=== PATIENT | female | born 1965 | race Caucasian/White ===

== ENCOUNTER → 2018-04-04 15:44 | Outpatient (CLI) | payer OTHER, SELFPAY ==
--- NOTE | 2018-04-04 15:47 | DI.MG.S_ITS ---
BILATERAL DIGITAL SCREENING MAMMOGRAM 3D/2D WITH CAD: 04/04/2018 CLINICAL: Routine screening. Comparison is made to exams dated: 01/21/2016 mammogram, 02/13/2017 mammogram, and 01/16/2015 mammogram - [facility]. The tissue of both breasts is extremely dense, which lowers the sensitivity of mammography. Current study was also evaluated with a Computer Aided Detection (CAD) system. No significant masses, calcifications, or other findings are seen in either breast. There has been no significant interval change. IMPRESSION: NEGATIVE There is no mammographic evidence of malignancy. A 1 year screening mammogram is recommended. This exam was interpreted at Station ID: [id number]. NOTE: For mammograms, a report in lay terms will be sent to the patient. Approximately 15% of breast malignancies will not be visualized mammographically. In the management of a palpable breast mass, a negative mammogram must not discourage biopsy of a clinically suspicious lesion. Electronically Signed By: Prabhjot cole/matilde:04/04/2018 16:20:41 letter sent: Normal Exam ACR BI-RADS Category 1: Negative 3341F
== END ==
PROVIDERS: PCP Family Medicine; Visit Provider Family Medicine
DX: Z12.31 Encounter for screening mammogram for malignant neoplasm of breast (principal)
CPT/HCPCS: 77066; G0279

== ENCOUNTER → 2018-08-15 15:40 | Outpatient (CLI) | payer OTHER, SELFPAY | PROVIDERS: PCP Family Medicine | DX: Z23 Encounter for immunization (principal) | CPT/HCPCS: 90471; 90686 ==

== ENCOUNTER → 2019-08-07 16:11 | Outpatient (CLI) | payer OTHER, SELFPAY ==
--- NOTE | 2019-08-07 | DI.MG.S_ITS ---
BILATERAL DIGITAL SCREENING MAMMOGRAM 3D/2D WITH CAD: 08/07/2019 CLINICAL: Routine screening. Comparison is made to exams dated: 04/04/2018 mammogram, 02/13/2017 mammogram, and 01/21/2016 mammogram - [facility]. The tissue of both breasts is heterogeneously dense. This may lower the sensitivity of mammography. Current study was also evaluated with a Computer Aided Detection (CAD) system. There is a round asymmetry in the right breast posterior depth lateral region seen on the craniocaudal view only. No other significant masses, calcifications, or other findings are seen in either breast. IMPRESSION: INCOMPLETE: NEEDS ADDITIONAL IMAGING EVALUATION The round asymmetry in the right breast is indeterminate. Additional views with possible ultrasound are recommended. This exam was interpreted at Station ID: [id number]. NOTE: For mammograms, a report in lay terms will be sent to the patient. Approximately 15% of breast malignancies will not be visualized mammographically. In the management of a palpable breast mass, a negative mammogram must not discourage biopsy of a clinically suspicious lesion. Electronically Signed By: Cesia del angel/matilde:08/07/2019 16:40:38 letter sent: Additional Imaging Needed ACR BI-RADS Category 0: Incomplete 3340F
== END ==
PROVIDERS: Visit Provider Family Medicine
DX: Z12.31 Encounter for screening mammogram for malignant neoplasm of breast (principal)
CPT/HCPCS: 77063; 77067

== ENCOUNTER → 2019-09-04 13:00 | Outpatient (CLI) | payer OTHER, SELFPAY | DX: Z23 Encounter for immunization (principal) | CPT/HCPCS: 90471; 90686 ==

== ENCOUNTER → 2019-09-18 13:11 | Outpatient (CLI) | payer OTHER, SELFPAY ==
--- NOTE | 2019-09-18 13:13 | DI.MG.S_ITS ---
UNILATERAL RIGHT DIGITAL DIAGNOSTIC MAMMOGRAM 3D/2D WITH ADDITIONAL VIEWS: 09/18/2019 CLINICAL: Additional evaluation requested from prior study. Comparison is made to exams dated: 08/07/2019 mammogram, 04/04/2018 mammogram, and 02/13/2017 mammogram - [facility]. The tissue of right breast is heterogeneously dense. This may lower the sensitivity of mammography. The previously described round asymmetry in the right breast posterior depth lateral region seen on the craniocaudal view only is no longer seen. This is consistent with summation artifact. No other significant masses or calcifications are seen in the breast. IMPRESSION: The previously described asymmetry disperses with additional views and is consistent with summation artifact. There is no mammographic evidence of malignancy. A 1 year screening mammogram is recommended. This exam was interpreted at Station ID: [id number]. NOTE: For mammograms, a report in lay terms will be sent to the patient. Approximately 15% of breast malignancies will not be visualized mammographically. In the management of a palpable breast mass, a negative mammogram must not discourage biopsy of a clinically suspicious lesion. Electronically Signed By: Ronnell Loco M.D. at/:09/18/2019 13:40:38 letter sent: Normal Exam ACR BI-RADS Category 2: Benign Finding(s) 3342F
== END ==
PROVIDERS: Visit Provider Family Medicine
DX: R92.8 Other abnormal and inconclusive findings on diagnostic imaging of breast (principal)
CPT/HCPCS: 77065; G0279

== ENCOUNTER → 2020-08-12 14:09 | Outpatient (CLI) | payer OTHER, SELFPAY ==
--- NOTE | 2020-08-12 14:11 | DI.MRI.S_ITS ---
PROCEDURE: MR HEAD/BRAIN WO CON INDICATIONS: Paresthesias TECHNIQUE: Non-contrast axial T1 spin echo, axial T2 fast spin echo, sagittal and axial FLAIR, coronal T2 fast spin echo, axial gradient echo, axial diffusion and ADC through the brain. COMPARISON: None. FINDINGS: Image quality: Excellent. CSF spaces: Ventricles appear symmetric in size and shape. Basal cisterns are patent. No extra-axial fluid collections. Brain: There are a few small non-specific foci of increased FLAIR/T2 hyperintensity in the subcortical white matter of the frontal lobes (both seen on series 7, image 20, 1 in the left superior frontal gyrus in the other in the right superior frontal gyrus). Otherwise normal brain parenchymal signal intensity. No restricted diffusion to indicate recent ischemia. The major intracranial vascular flow-related signal voids are maintained. Midline structures are normal in configuration. Skull and face: Calvarial bone marrow is normal in signal. Orbits are normal. Sinuses: Sinuses and mastoids are clear. IMPRESSION: Nonspecific small foci of increased T2/FLAIR signal intensity in the subcortical white matter both cerebral frontal lobes. These most likely represent early chronic microvascular ischemic change. Alternatively, these could represent sequela of vasculitis or demyelinating disorder, however this is considered unlikely based on their limited frontal lobe distribution and the lack of characteristic lesions involving the periventricular white matter. Dictated by: Adolph Ball M.D. on 08/12/2020 at 15:35 Approved by: Adolph Ball M.D. on 08/12/2020 at 15:38
== END ==
PROVIDERS: PCP Family Medicine; Referring Provider Family Medicine; Visit Provider Family Medicine
DX: R20.2 Paresthesia of skin (principal)
CPT/HCPCS: 70551

== ENCOUNTER → 2020-08-26 | Outpatient (CLI) | payer OTHER, SELFPAY | PROVIDERS: PCP Family Medicine; Referring Provider Internal Medicine; Visit Provider Internal Medicine | DX: Z23 Encounter for immunization (principal) | CPT/HCPCS: 90471; 90686 ==

== ENCOUNTER → 2020-10-01 16:18 | Outpatient (CLI) | payer OTHER, SELFPAY ==
--- NOTE | 2020-10-01 | DI.MG.S_ITS ---
BILATERAL DIGITAL SCREENING MAMMOGRAM 3D/2D WITH CAD: 10/01/2020 CLINICAL: Routine screening. Comparison is made to exams dated: 08/07/2019 mammogram, 04/04/2018 mammogram, and 02/13/2017 mammogram - [facility]. The tissue of both breasts is heterogeneously dense. This may lower the sensitivity of mammography. Current study was also evaluated with a Computer Aided Detection (CAD) system. There is possible architectural distortion in the right breast middle depth superior region seen on the mediolateral oblique view only. It is unclear if this might correlate with a distant excisional biopsy of the right breast. No other significant masses, calcifications, or other findings are seen in either breast. IMPRESSION: INCOMPLETE: NEEDS ADDITIONAL IMAGING EVALUATION The possible architectural distortion in the right breast is indeterminate. Additional views with possible ultrasound are recommended. This exam was interpreted at Station ID: [id number]. NOTE: For mammograms, a report in lay terms will be sent to the patient. Approximately 15% of breast malignancies will not be visualized mammographically. In the management of a palpable breast mass, a negative mammogram must not discourage biopsy of a clinically suspicious lesion. Electronically Signed By: Cesia del angel/:10/01/2020 16:50:59 letter sent: Additional Imaging Needed ACR BI-RADS Category 0: Incomplete 3340F
== END ==
PROVIDERS: PCP Family Medicine; Referring Provider Family Medicine; Visit Provider Family Medicine
DX: Z12.31 Encounter for screening mammogram for malignant neoplasm of breast (principal)
CPT/HCPCS: 77063; 77067

== ENCOUNTER → 2020-10-05 08:58 | Outpatient (CLI) | payer OTHER, SELFPAY ==
--- NOTE | 2020-10-05 | DI.MG.S_ITS ---
UNILATERAL RIGHT DIGITAL DIAGNOSTIC MAMMOGRAM 3D/2D WITH ADDITIONAL VIEWS: 10/05/2020 CLINICAL: Additional evaluation requested from prior study. Comparison is made to exams dated: 10/01/2020 mammogram, 09/18/2019 mammogram, 08/07/2019 mammogram, and 04/04/2018 mammogram - [facility]. The tissue of right breast is heterogeneously dense. This may lower the sensitivity of mammography. The previously described possible architectural distortion in the right breast middle depth superior region seen on the mediolateral oblique view only is not reproduced and presumably represented superimposed breast tissue. This correlates in close proximity to previous surgery site. No other significant masses or calcifications are seen in the breast. IMPRESSION: INCOMPLETE: NEEDS ADDITIONAL IMAGING EVALUATION An ultrasound is recommended to confirm the no longer seen architectural distortion in the right breast middle depth superior region seen on the mediolateral oblique view only which is scheduled to immediately follow this examination. This exam was interpreted at Station ID: [id number]. NOTE: For mammograms, a report in lay terms will be sent to the patient. Approximately 15% of breast malignancies will not be visualized mammographically. In the management of a palpable breast mass, a negative mammogram must not discourage biopsy of a clinically suspicious lesion. Electronically Signed By: Ronnell Loco M.D. aty/:10/05/2020 12:19:25 ACR BI-RADS Category 0: Incomplete 3340F
--- NOTE | 2020-10-05 09:01 | DI.US.S_ITS ---
LIMITED ULTRASOUND OF RIGHT BREAST AND AXILLA: 10/05/2020 CLINICAL: Patient returns today to evaluate an asymmetry in the right breast. Comparison is made to exams dated: 10/05/2020 mammogram, 10/01/2020 mammogram, 08/07/2019 mammogram, 09/18/2019 mammogram, and 04/04/2018 mammogram - [facility]. Real-time ultrasound of the right breast 10-1 o'clock, and axilla regions was performed. Odom scale images of the real-time examination were reviewed. No significant abnormalities were seen sonographically in the right breast or the right axilla. IMPRESSION: NEGATIVE There is no sonographic evidence of malignancy. There is no abnormality seen in the right breast to correspond with the resolved area of possible architectural distortion seen on recent screening mammogram but not confirmed on today's additional views. A 1 year screening mammogram is recommended. Findings and recommendations were conveyed to the patient during today's evaluation. This exam was interpreted at Station ID: [id number]. Electronically Signed By: Ronnell Loco M.D. at/:10/05/2020 12:21:10 letter sent: Normal Exam Ultrasound BI-RADS: 1 Negative
== END ==
PROVIDERS: PCP Family Medicine; Referring Provider Family Medicine; Visit Provider Family Medicine
DX: R92.8 Other abnormal and inconclusive findings on diagnostic imaging of breast (principal)
CPT/HCPCS: 76642; 77065; G0279

== ENCOUNTER → 2020-10-23 07:48 | Outpatient (CLI) | payer OTHER, SELFPAY ==
[2020-10-23] MEDS: COVID-19 VACC(MODERNA-1)/PF 100 MCG/0.5 ML VIAL IM (07:55)
== END ==
PROVIDERS: PCP Family Medicine; Visit Provider Internal Medicine
DX: Z23 Encounter for immunization (principal)
CPT/HCPCS: 0011A; 91301

== ENCOUNTER → 2020-11-18 09:13 | Outpatient (CLI) | payer OTHER, SELFPAY ==
[2020-11-18] MEDS: COVID-19 VACC #2, MRNA(MOD) 100 MCG/0.5 ML VIAL IM (09:16)
== END ==
PROVIDERS: PCP Family Medicine; Visit Provider Internal Medicine
DX: Z23 Encounter for immunization (principal)
CPT/HCPCS: 0012A; 91301

== ENCOUNTER → 2021-01-08 08:48 | Outpatient (CLI) | payer OTHER, SELFPAY ==
[2021-01-08 11:05] LABS: COVID19 -Nasal RAPID Negative (Negative)
== END ==
PROVIDERS: PCP Family Medicine; Visit Provider Specialist
DX: Z20.822 Contact with and (suspected) exposure to COVID-19 (principal); G47.33 Obstructive sleep apnea (adult) (pediatric)
CPT/HCPCS: 87635; 95811; C9803

== ENCOUNTER → 2021-07-22 11:41 | Outpatient (CLI) | payer OTHER, SELFPAY | PROVIDERS: PCP Family Medicine; Referring Provider Internal Medicine; Visit Provider Internal Medicine | DX: Z23 Encounter for immunization (principal) | CPT/HCPCS: 90471; 90686 ==

== ENCOUNTER → 2021-07-30 11:20 | Outpatient (CLI) | payer OTHER, SELFPAY ==
--- NOTE | 2021-07-30 11:22 | DI.RAD.S_ITS ---
PROCEDURE: XR SHOULDER RT MIN 2V INDICATIONS: Right shoulder pain TECHNIQUE: 3 views of the shoulder were acquired. COMPARISON: None. FINDINGS: Bones: No fractures or dislocations. No suspicious bony lesions. Visualized ribs appear intact. Soft tissues: No suspicious soft tissue calcifications. A 1.8 x 1.1 cm density is seen on the scapular view. IMPRESSION: 1. No acute osseous abnormality. 2. Ovoid density on the scapular view, which may reflect artifact or soft tissue lesion. Consider ultrasound or magnetic resonance imaging as clinically warranted. Dictated by: Edgard Escobar M.D. on 07/30/2021 at 11:41 Approved by: Edgard Escobar M.D. on 07/30/2021 at 11:45
== END ==
PROVIDERS: PCP Family Medicine; Referring Provider Surgery; Visit Provider Surgery
DX: M25.511 Pain in right shoulder (principal)
CPT/HCPCS: 73030

== ENCOUNTER → 2021-09-03 09:25 | Outpatient (CLI) | payer OTHER, SELFPAY ==
[2021-09-03] MEDS: COVID-19 VACC #3, MRNA(MOD) 50 MCG/0.25 ML VIAL IM (09:30)
== END ==
PROVIDERS: PCP Family Medicine; Visit Provider Internal Medicine
DX: Z23 Encounter for immunization (principal)
CPT/HCPCS: 0013A; 91301

== ENCOUNTER → 2021-10-04 11:19 | Outpatient (CLI) | payer OTHER, SELFPAY ==
--- NOTE | 2021-10-04 | DI.MG.S_ITS ---
BILATERAL DIGITAL SCREENING MAMMOGRAM 3D/2D WITH CAD: 10/04/2021 CLINICAL: Routine screening. Comparison is made to exams dated: 10/05/2020 ultrasound, 10/05/2020 mammogram, 10/01/2020 mammogram, 09/18/2019 mammogram, and 08/07/2019 mammogram - [facility]. The tissue of both breasts is heterogeneously dense. This may lower the sensitivity of mammography. Current study was also evaluated with a Computer Aided Detection (CAD) system. No significant masses, calcifications, or other findings are seen in either breast. There has been no significant interval change. IMPRESSION: NEGATIVE There is no mammographic evidence of malignancy. A 1 year screening mammogram is recommended. This exam was interpreted at Station ID: [id number]. NOTE: For mammograms, a report in lay terms will be sent to the patient. Approximately 15% of breast malignancies will not be visualized mammographically. In the management of a palpable breast mass, a negative mammogram must not discourage biopsy of a clinically suspicious lesion. Electronically Signed By: Adolph Ball M.D., jr/matilde:10/04/2021 12:01:30 letter sent: Normal Exam ACR BI-RADS Category 1: Negative 3341F
== END ==
PROVIDERS: Referring Provider Family Medicine; Visit Provider Family Medicine
DX: Z12.31 Encounter for screening mammogram for malignant neoplasm of breast (principal)
CPT/HCPCS: 77063; 77067

== ENCOUNTER → 2021-10-13 08:37 | Outpatient (CLI) | payer OTHER, SELFPAY ==
[2021-10-13 12:55] LABS: COVID19 -Nasal RAPID POSITIVE (Negative)
== END ==
PROVIDERS: Visit Provider Nurse Practitioner Family
DX: Z20.822 Contact with and (suspected) exposure to COVID-19 (principal); J02.9 Acute pharyngitis, unspecified; R05.9 Cough, unspecified; R68.83 Chills (without fever); R53.83 Other fatigue
CPT/HCPCS: 87635

== ENCOUNTER → 2022-01-06 11:15 | Outpatient (CLI) | payer OTHER, SELFPAY ==
[2022-01-06 12:19] LABS: COVID19 -Nasal RAPID Negative (Negative)
== END ==
PROVIDERS: Visit Provider Physician Assistant
DX: J02.9 Acute pharyngitis, unspecified (principal); Z20.822 Contact with and (suspected) exposure to COVID-19
CPT/HCPCS: 87070; 87635

== ENCOUNTER → 2022-03-04 10:09 | Outpatient (CLI) | payer OTHER, SELFPAY ==
[2022-03-04 10:57] LABS: COVID19 -Nasal RAPID Negative (Negative)
== END ==
PROVIDERS: Visit Provider Surgery
DX: Z20.822 Contact with and (suspected) exposure to COVID-19 (principal)
CPT/HCPCS: 87635

== ENCOUNTER → 2022-05-06 09:45 | Outpatient (CLI) | payer OTHER, SELFPAY ==
[2022-05-06 10:39] LABS: COVID19 -Nasal RAPID Negative (Negative)
== END ==
PROVIDERS: Visit Provider Surgery
DX: Z01.812 Encounter for preprocedural laboratory examination (principal); Z20.822 Contact with and (suspected) exposure to COVID-19
CPT/HCPCS: 87635; C9803

== ENCOUNTER → 2022-09-02 15:37 | Outpatient (CLI) | payer OTHER, SELFPAY | PROVIDERS: Referring Provider Internal Medicine; Visit Provider Internal Medicine | DX: Z23 Encounter for immunization (principal) | CPT/HCPCS: 90471; 90686 ==

== ENCOUNTER → 2022-11-03 07:36 | Outpatient (CLI) | payer OTHER, SELFPAY ==
--- NOTE | 2022-11-03 | DI.MG.S_ITS ---
BILATERAL DIGITAL SCREENING MAMMOGRAM 3D/2D WITH CAD: 11/03/2022 CLINICAL: Routine screening. Comparison is made to exams dated: 10/04/2021 mammogram, 10/01/2020 mammogram, 08/07/2019 mammogram, 10/05/2020 ultrasound, 10/05/2020 mammogram, and 09/18/2019 mammogram - [facility]. Both breasts are heterogeneously dense, which may obscure small masses (category c / 51-75% glandular tissue). Current study was also evaluated with a Computer Aided Detection (CAD) system. No significant masses, calcifications, or other findings are seen in either breast. There has been no significant interval change. IMPRESSION: NEGATIVE There is no mammographic evidence of malignancy. A 1 year screening mammogram is recommended. Based on the Tyrer Cuzick model (a risk assessment model) the patient's lifetime risk is 7.7% and her 10 year risk is 2.5%. According to the ACR, ACS, and NCCN guidelines, an annual breast MRI exam along with mammogram is recommended if the patient's lifetime risk is 20% or greater. This exam was interpreted at Station ID: [id number]. NOTE: For mammograms, a report in lay terms will be sent to the patient. Approximately 15% of breast malignancies will not be visualized mammographically. In the management of a palpable breast mass, a negative mammogram must not discourage biopsy of a clinically suspicious lesion. Electronically Signed By: Adolph Ball M.D., jr/matilde:11/03/2022 13:31:55 letter sent: Normal Exam ACR BI-RADS Category 1: Negative 3341F
== END ==
PROVIDERS: Referring Provider Surgery; Visit Provider Surgery
DX: Z12.31 Encounter for screening mammogram for malignant neoplasm of breast (principal)
CPT/HCPCS: 77063; 77067

== ENCOUNTER → 2023-08-11 | Outpatient (CLI) | payer OTHER, SELFPAY | PROVIDERS: PCP Surgery; Referring Provider Family Medicine; Visit Provider Family Medicine | DX: Z23 Encounter for immunization (principal) | CPT/HCPCS: 90471; 90686 ==

== ENCOUNTER → 2023-11-08 07:20 | Outpatient (CLI) | payer OTHER, SELFPAY ==
--- NOTE | 2023-11-08 07:22 | DI.MG.S_ITS ---
BILATERAL DIGITAL SCREENING MAMMOGRAM 3D/2D WITH CAD: 11/08/2023 CLINICAL: Routine screening. Comparison is made to exams dated: 11/03/2022 mammogram, 10/04/2021 mammogram, 10/01/2020 mammogram, and 08/07/2019 mammogram - [facility]. Both breasts are heterogeneously dense, which may obscure small masses (category c / 51-75% glandular tissue). Current study was also evaluated with a Computer Aided Detection (CAD) system. There is an asymmetry in the left breast posterior depth inferior region seen on the mediolateral oblique view only. No other significant masses, calcifications, or other findings are seen in either breast. IMPRESSION: INCOMPLETE: NEEDS ADDITIONAL IMAGING EVALUATION The asymmetry in the left breast is indeterminate. Additional views with possible ultrasound are recommended. Based on the Tyrer Cuzick model (a risk assessment model) the patient's lifetime risk is 7.6% and her 10 year risk is 2.6%. According to the ACR, ACS, and NCCN guidelines, an annual breast MRI exam along with mammogram is recommended if the patient's lifetime risk is 20% or greater. This exam was interpreted at Station ID: [id number]. NOTE: For mammograms, a report in lay terms will be sent to the patient. Approximately 15% of breast malignancies will not be visualized mammographically. In the management of a palpable breast mass, a negative mammogram must not discourage biopsy of a clinically suspicious lesion. Electronically Signed By: Benja Garcia M.D. [facility]/:11/08/2023 08:28:50 letter sent: Additional Imaging Needed ACR BI-RADS Category 0: Incomplete 3340F
== END ==
PROVIDERS: PCP Family Medicine; Referring Provider Family Medicine; Visit Provider Family Medicine
DX: Z12.31 Encounter for screening mammogram for malignant neoplasm of breast (principal); R92.333 Mammographic heterogeneous density, bilateral breasts
CPT/HCPCS: 77063; 77067

== ENCOUNTER → 2023-11-14 07:33 | Outpatient (CLI) | payer OTHER, SELFPAY ==
[2023-11-14 08:38] LABS: Add Manual Diff / Slide Review NO; Basophils Absolute Auto 0 /uL (0-100); Basophils Percent Auto 0.5 % (0-2); Eosinophils Absolute Auto 300 /uL (0-450); Eosinophils Percent Auto 6.5 % (2-4); Hematocrit 39.5 % (36-46); Hemoglobin 13.1 g/dL (12.0-16.0); Lymphocytes Absolute Auto 1700 /uL (1100-4500); Mean Corpuscular HGB Conc 33.3 % (30-36); Mean Corpuscular Hemoglobin 28.9 PG (26-34); Monocytes Absolute Auto 300 /uL (0-900); Monocytes Percent Auto 6.5 % (3-14); Neutrophils Absolute Auto 2200 /uL (1500-7000); Neutrophils Percent Auto 49.5 % (50-75); Platelet Count 298 X10^3/uL (150-400); Red Blood Cell Count 4.54 X10^6/uL (4.0-5.2); Red Cell Distribution Width 13.1 % (11.6-14.8); White Blood Cell Count 4.5 X10^3/uL (4.5-11.0)
[2023-11-14 09:13] LABS: Alanine Aminotransferase 20 IU/L (<35); Albumin Globulin Ratio 1.4 (1.0-2.8); Alkaline Phosphatase 79 U/L (38-126); Aspartate Aminotransferase 23 IU/L (14-36); BUN Creatinine Ratio 23.3 (6-22); Bilirubin Total 0.8 mg/dL (0.2-1.3); Blood Urea Nitrogen 17 mg/dL (7-17); Calcium 9.4 mg/dL (8.4-10.2); Carbon Dioxide 26 mmol/L (22-32); Chloride 105 mmol/L (98-107); Cholesterol 189 mg/dL (140-199); Estimated Glomerular Filt Rate > 60 mL/min (>60); Globulin 2.9 g/dL (1.7-4.1); Glucose 89 mg/dL (70-100); HDL Cholesterol 52 mg/dL (40-60); HEMOLYSIS < 15 (0-50); LDL Cholesterol Calculated 113 mg/dL (<100); Sodium 138 mmol/L (137-145); Total Protein 6.9 g/dL (6.3-8.2); Triglycerides 119 mg/dL (35-150)
[2023-11-14 09:37] LABS: TSH w/ Reflex to FT4 2.23 uIU/mL (0.47-4.68)
[2023-11-14 09:56] LABS: Vitamin B12 276 pg/mL (239-931)
[2023-11-15 23:48] LABS: Deamidated Gliadin Ab IgA 5 units (0-19); Deamidated Gliadin Ab IgG 2 units (0-19); Immunoglobulin A,Qn 121 mg/dL (87-352); t-Transglutaminase IgA <2 U/mL (0-3)
[2023-11-20 20:08] LABS: Factor V Leiden Mutation See below: (.)
== END ==
LOC: LAB 07:34
PROVIDERS: PCP Family Medicine; Referring Provider Family Medicine; Visit Provider Family Medicine
DX: Z13.9 Encounter for screening, unspecified (principal); R10.9 Unspecified abdominal pain; T78.40XA Allergy, unspecified, initial encounter; D68.51 Activated protein C resistance
CPT/HCPCS: 36415; 80053; 80061; 81241; 82306; 82607; 82784; 83516; 84443; 85025

== ENCOUNTER 2023-12-04 10:29 | Day surgery (SDC) | payer OTHER, SELFPAY ==
--- NOTE | 2023-12-04 | PATH_ITS ---
[facility] Accession Number: [id number] No. of containers..04 Tissue . 01 Material submitted: . PART A: duodenum - DUODENAL PART B: esophagus - DISTAL ESOPHAGUS PART C: esophagus - MID ESOPHAGUS PART D: esophagus - PROXIMAL ESOPHAGUS . 01 Diagnosis: A. DUODENUM, BIOPSY: Duodenal mucosa with no diagnostic abnormality. Negative for active inflammation, features of sprue, dysplasia, or malignancy. . B-D. DISTAL ESOPHAGUS, MID ESOPHAGUS, PROXIMAL ESOPHAGUS, BIOPSIES: Squamous epithelium with no diagnostic abnormality. Intraepithelial eosinophils are not increased. Negative for dysplasia and malignancy. [facility] 12/06/2023 1452 Local . 01 Electronically signed: . Alpa Heredia MD, Pathologist NPI- [id number] . 01 Gross description: . Part A: DUODENAL : Received in formalin is 2 fragment(s) of domínguez, soft tissue measuring 0.2 x 0.1 x 0.1 cm to 0.1 x 0.1 x 0.1 cm submitted entirely in 1 cassette(s) Part B: DISTAL ESOPHAGUS: Received in formalin is 1 fragment(s) of domínguez, soft tissue measuring 0.3 x 0.2 x 0.1 cm submitted entirely in 1 cassette(s) Part C: MID ESOPHAGUS: Received in formalin is 3 fragment(s) of domínguez, soft tissue measuring 0.2 x 0.2 x 0.1 cm to 0.2 x 0.1 x 0.1 cm submitted entirely in 1 cassette(s) Part D: PROXIMAL ESOPHAGUS: Received in formalin is 3 fragment(s) of domínguez, soft tissue measuring 0.2 x 0.2 x 0.1 cm to 0.2 x 0.1 x 0.1 cm submitted entirely in 1 cassette(s) /AA 12/05/[address] [place] [address] . 01 Pathologist provided ICD-10: R10.9 . 01 CPT . 899737, 407198, 821260, 370425 Specimen Comment: A courtesy copy of this report has been sent to [phone] Performed at: 01 [facility] [address] [place] [address], [place], [place] [id number] MD Prabhjot Amaya MD Phone: [phone]
[2023-12-04 11:16] VITALS: BP 120/68; PULSE 68; RESP 16; TEMP 36.3; O2SAT 98
[2023-12-04] MEDS: LACTATED RINGERS 1,000 ML 42 ML IV (11:31)
--- NOTE | 2023-12-04 11:53 | P.HP_ITS ---
History of Present Illness History of Present Illness Date Patient Seen: 12/04/23 Time Patient Seen: 11:53 Chief complaint: EGD Narrative: Dysphasia, early satiety, dyspepsia. Brother recently diagnosed with EoE. [facility] Medical History Insomnia due to medical condition Obstructive sleep apnea (02/2019) Adjustment reaction Paresthesia Depression Anxiety Skin lesion (05/07/15) Dyspnea on exertion (05/07/15) Arthralgia (05/07/15) Abdominal pain (05/07/15) Pelvic pain Rectal bleeding Family History Father Alcoholism Sister RA (rheumatoid arthritis) Social History Smoking Status: Former smoker alcohol intake: current Meds Home Medications and Allergies Home Medications Medication Instructions Recorded Confirmed Type albuterol sulfate 90 mcg/actuation 2 puff inhalation SEE INSTRUCTIONS 06/27/18 12/04/23 Rx aerosol inhaler (Ventolin HFA) #1 ea clobetasol 0.05 % topical ointment 1 applic topical BID 2 weeks #15 11/03/23 Rx grams omeprazole 40 mg capsule,delayed 40 mg PO BID #30 caps 11/03/23 12/04/23 Rx release sumatriptan succinate 25 mg tablet See Rx Instructions PO .COMPLEX 11/03/23 12/04/23 Rx #20 tabs sodium sul 1.479 gram-potas ch See Rx Instructions PO PER PKG DIR 12/01/23 Rx 0.188 gram-magnes sul 0.225 gram #24 tabs tablet (Sutab) Allergies Allergy/AdvReac Type Severity Reaction Status Date / Time No Known Drug Allergies Allergy Verified 12/04/23 11:01 Review of Systems Review of Systems ROS: Yes All systems reviewed with the patient and are negative except as otherwise documented Exam Vital Signs (past 8 hours): - 12/04/23 11:16 Temperature 97.3 F L Pulse Rate 68 Respiratory Rate 16 Blood Pressure 120/68 Pulse Oximetry 98 Oxygen Delivery Method Room Air Oxygen Delivery Method Room Air Const General: cooperative and healthy appearing HENMT Head: normocephalic and atraumatic Ears: hearing grossly normal bilaterally Neck Neck: trachea midline and No JVD Resp Effort & Inspection: normal respiratory effort and able to speak in complete sentences Cardio Rate: regular rate Rhythm: regular rhythm GI Palpation: soft and No tender Skin General: turgor normal and No atrophy Neuro General: patient alert, patient awake and patient oriented x3 Cognition: normal cognition Psych Appearance: grossly normal Mental Status: mental status grossly normal Judgment: judgment good Assessment & Plan Assessment & Plan narrative: Dyspepsia. FH of esocynophilic esophagitis Plan: EGD with esophageal and duodenal biopsies. Time Spent With Patient Time with patient: less than 30 minutes
--- NOTE | 2023-12-04 12:13 | PM.OP.EGD ---
Operative Date/Time/Diagnoses Date of procedure: 12/04/23 Time of procedure: 12:13 Pre-op diagnosis: Dyspepsia, family history of eosinophilic esophagitis Post-op diagnosis: same Procedure & Clinicians Study performed: EGD with cold forceps biopsies Same procedure as scheduled: Yes Indications: Dyspepsia and family history of eosinophilic esophagitis Surgeon: Velma Vasques Procedure Notes Procedure in detail: Preop diagnosis: Dyspepsia with family history of eosinophilic esophagitis Postop diagnosis same Surgeon: Cande Vasques MD Findings: Mild gastritis, small hiatal hernia. The remainder of the mucosa of the duodenal stomach and esophagus are normal in appearance Procedure: Patient placed in a lateral position. Anesthetic was provided. Scope was inserted into the esophagus and with insufflation I intubated into the stomach, followed by duodenal. Insufflation and extraction of the scope including retroflex in the stomach and the above findings. Cold forceps biopsies were taken of 1. Duodenal, 2. Distal esophagus, 3. Mid esophagus, 4. Upper esophagus. Impression: Mild gastritis, small hiatal hernia Plan: Await biopsy results to rule out celiac disease as well as eosinophilic esophagitis Findings: gastritis Specimen(s): other (Duodenal; lower, middle and upper biopsies of esophagus) Complications: none Post-procedure Follow up: as needed Disposition: PACU
[2023-12-04 12:18] VITALS: BP 121/71; PULSE 73; RESP 16; TEMP 36.6; O2SAT 96
[2023-12-04 12:28] VITALS: BP 116/73; PULSE 69; RESP 18; TEMP 36.9; O2SAT 98
[2023-12-04 12:29] VITALS: BP 110/76; PULSE 70; RESP 16; O2SAT 97
[2023-12-04 12:35] VITALS: BP 132/71; PULSE 65; RESP 18; TEMP 36.4; O2SAT 99
== END 2023-12-04 12:48 | disposition home or self-care (01) ==
PROVIDERS: PCP Family Medicine; Referring Provider Surgery; Visit Provider Surgery
PROC: 0DJ08ZZ Inspection of Upper Intestinal Tract, Via Natural or Artificial Opening Endoscopic (ICD-10-PCS; CPT 43235; principal; 2023-12-04 11:15)
DX: R10.13 Epigastric pain (principal); Z83.79 Family history of other diseases of the digestive system; K29.70 Gastritis, unspecified, without bleeding; K44.9 Diaphragmatic hernia without obstruction or gangrene
CPT/HCPCS: 43239; J2704

== ENCOUNTER → 2023-12-06 08:38 | Outpatient (CLI) | payer OTHER, SELFPAY ==
--- NOTE | 2023-12-06 08:39 | DI.US.S_ITS ---
PROCEDURE: US PELVIC COMPLETE INDICATIONS: Postmenopausal bleeding TECHNIQUE: Real-time scanning was performed of the pelvic organs, with image documentation. Additional endovaginal scanning was necessary due to incomplete visualization of the adnexal and endometrial structures by transabdominal scanning. COMPARISON: [facility], , PELVIC COMPLETE, 06/25/2013, 7:59. FINDINGS: Uterus: Uterus is anteverted and normal in size at 7.4 x 2.9 x 5.1 cm. The myometrium is mildly heterogeneous without dominant mass. The endometrium measures three mm combined thickness. No increased vascularity in the region of the endometrium. The cervix appears normal. Ovaries: Neither ovary was seen. No suspicious adnexal masses. Other: No pathologic free abdominal or pelvic fluid. IMPRESSION: Age-appropriate size uterus and normal thickness endometrium. We strive to produce accurate, complete, and clear reports of imaging services. To assist us in improving patient care, this report was composed using standard report templates and voice recognition software. Therefore, it may contain abnormal punctuation, insertions and/or omissions. Occasional wrong-word or sound-alike substitutions may occur. Though we review the report and make efforts to correct it, we do recommend that the report be read carefully in proper context to recognize any text inaccuracies. Dictated by: Hattie Gutierrez M.D. on 12/06/2023 at 16:24 Approved by: Hattie Gutierrez M.D. on 12/06/2023 at 16:26
--- NOTE | 2023-12-06 08:40 | DI.MG.S_ITS ---
UNILATERAL LEFT DIGITAL DIAGNOSTIC MAMMOGRAM 3D/2D WITH ADDITIONAL VIEWS: 12/06/2023 CLINICAL: Additional evaluation requested from prior study. Comparison is made to exams dated: 11/03/2022 mammogram, 10/04/2021 mammogram, and 11/08/2023 mammogram - [facility]. The left breast is heterogeneously dense, which may obscure small masses (category c / 51-75% glandular tissue). The asymmetry in the left breast posterior depth inferior region seen on the mediolateral oblique view onl is not seen in additional views. No other significant masses or calcifications are seen in the breast. IMPRESSION: BENIGN The asymmetry in the left breast seen on the screening mammogram likely respresents superimposed fibroglandular tissue and is benign. There is no mammographic evidence of malignancy. Return to annual mammogram screening schedule is recommended. Based on the Tyrer Cuzick model (a risk assessment model) the patient's lifetime risk is 7.6% and her 10 year risk is 2.6%. According to the ACR, ACS, and NCCN guidelines, an annual breast MRI exam along with mammogram is recommended if the patient's lifetime risk is 20% or greater. This exam was interpreted at Station ID: [id number]. NOTE: For mammograms, a report in lay terms will be sent to the patient. Approximately 15% of breast malignancies will not be visualized mammographically. In the management of a palpable breast mass, a negative mammogram must not discourage biopsy of a clinically suspicious lesion. Electronically Signed By: Cesia Castillo M.D. lk/:12/06/2023 09:29:49 letter sent: Normal Exam ACR BI-RADS Category 2: Benign Finding(s) 3342F
== END ==
LOC: US 08:38
PROVIDERS: PCP Family Medicine; Referring Provider Family Medicine; Visit Provider Family Medicine
DX: R92.332 Mammographic heterogeneous density, left breast (principal); R92.8 Other abnormal and inconclusive findings on diagnostic imaging of breast; N95.0 Postmenopausal bleeding
CPT/HCPCS: 76830; 76856; 77065; G0279

== ENCOUNTER → 2024-02-06 13:51 | Outpatient (CLI) | payer OTHER, SELFPAY ==
[2024-02-06 14:38] LABS: Influenza A - CEPHEID Flu A NEGATIVE (NEGATIVE); Influenza B - CEPHEID Flu B NEGATIVE (NEGATIVE); Respiratory Syncytial Virus Negative (Negative)
[2024-02-06 16:03] LABS: COVID-19 CEPHEID 4-PLEX PCR Negative (Negative)
== END ==
PROVIDERS: PCP Family Medicine; Visit Provider Family Medicine
DX: J06.9 Acute upper respiratory infection, unspecified (principal)
CPT/HCPCS: 0241U

== ENCOUNTER → 2024-02-06 17:11 | Outpatient (CLI) | payer OTHER, SELFPAY ==
--- NOTE | 2024-02-06 17:12 | DI.RAD.S_ITS ---
PROCEDURE: XR CHEST 2V INDICATIONS: chronic cough TECHNIQUE: 2 views of the chest were acquired. COMPARISON: [facility], CHEST 2 VIEW, 09/14/2016, 9:13. [facility], CHEST 2 VIEW, 04/29/2015, 12:27. FINDINGS: Surgical changes and devices: None. Lungs and pleura: Lungs are clear. No pleural effusions or pneumothorax. Peribronchial cuffing. Calcified granuloma. Mediastinum: Mediastinal contours are normal. Heart size is normal. Bones and chest wall: No suspicious bony abnormalities. Soft tissues appear unremarkable. IMPRESSION: Peribronchial cuffing, typically indicating infectious or inflammatory bronchitis. Dictated by: Agustín Lindquist M.D. on 02/07/2024 at 9:02 Approved by: Agustín Lindquist M.D. on 02/07/2024 at 9:03
== END ==
PROVIDERS: PCP Family Medicine; Referring Provider Family Medicine; Visit Provider Family Medicine
DX: J06.9 Acute upper respiratory infection, unspecified (principal); R05.3 Chronic cough
CPT/HCPCS: 0241U; 71046

== ENCOUNTER → 2024-02-14 10:38 | Outpatient (CLI) | payer OTHER, SELFPAY ==
--- NOTE | 2024-02-14 10:39 | DI.RAD.S_ITS ---
PROCEDURE: XR CHEST 2V INDICATIONS: cough TECHNIQUE: 2 views of the chest were acquired. COMPARISON: [facility], CR, XR CHEST 2V, 02/06/2024, 17:14. FINDINGS: Surgical changes and devices: None. Lungs and pleura: Lungs are clear. No pleural effusions or pneumothorax. Mediastinum: Mediastinal contours are normal. Heart size is normal. Bones and chest wall: No suspicious bony abnormalities. Soft tissues appear unremarkable. IMPRESSION: No acute cardiopulmonary abnormality is seen. Approved by: Peña Schneider M.D. on 02/14/2024 at 18:06
== END ==
PROVIDERS: PCP Family Medicine; Referring Provider Family Medicine; Visit Provider Family Medicine
DX: R05.9 Cough, unspecified (principal)
CPT/HCPCS: 71046

== ENCOUNTER → 2024-02-19 13:40 | Outpatient (CLI) | payer OTHER, SELFPAY | PROVIDERS: PCP Family Medicine; Visit Provider Family Medicine | DX: R05.1 Acute cough (principal) | CPT/HCPCS: 87252 ==

== ENCOUNTER → 2024-02-20 07:42 | Outpatient (CLI) | payer OTHER, SELFPAY ==
--- NOTE | 2024-02-20 07:43 | DI.MRI.S_ITS ---
PROCEDURE: MR HEAD/BRAIN WO CON INDICATIONS: mild cognitive impairment TECHNIQUE: Noncontrast axial T1 spin echo, axial T2 fast spin echo, sagittal and axial FLAIR, coronal T2 fast spin echo, axial gradient echo, axial diffusion and ADC through the brain. COMPARISON: [facility], CT, HEAD WITHOUT CONTRAST, 08/05/2015, 11:25. [facility], MR, MR HEAD/BRAIN WO CON, 08/12/2020, 14:46. FINDINGS: Image quality: Excellent. CSF Spaces: Basal cisterns are patent. No extra-axial fluid collections. Ventricles are normal in size and shape. Brain: No intracranial masses or hemorrhage. Odom/white matter interface is normal. Brainstem appears normal. Diffusion-weighted images demonstrate no acute infarct. No chronic ischemic insults. Normal intravascular flow voids are present. The brain volume is within normal limits for age. Minimal early chronic small vessel ischemic change can be seen. Skull and face: Calvarium has normal marrow signal. Orbits appear normal. Sinuses: There is moderate mucosal thickening within the right maxillary sinus. Mild mucosal thickening can be seen elsewhere within the paranasal sinuses. There is mild bilateral mastoid air cell fluid. IMPRESSION: Brain MRI within normal limits for age. Dictated by: Jeff Walton M.D. on 02/20/2024 at 10:15 Approved by: Jeff Walton M.D. on 02/20/2024 at 10:19
== END ==
PROVIDERS: PCP Family Medicine; Referring Provider Family Medicine; Visit Provider Family Medicine
DX: G31.84 Mild cognitive impairment of uncertain or unknown etiology (principal)
CPT/HCPCS: 70551